=== PATIENT | female | born 1960 | race Caucasian/White ===

== ENCOUNTER → 2018-06-10 | Outpatient (CLI) | payer BC ==
--- NOTE | 2018-06-10 11:52 | 2DMMODE ---
[place] [address] 2 D/M-MODE ECHOCARDIOGRAM Name: DEACON WONG Room: [facility]#: [id number] Admission: 06/10/18 Attend Phys: Alice Neely Discharge: Date of : 64 Date of Service: 06/10/18 1151 Report #: [id number] THIS REPORT FOR: //name// APPROVED REPORT Study performed: 06/10/2018 09:01:25 EXAM: Comprehensive 2D, Doppler, and color-flow Echocardiogram Patient Location: Out-Patient Status: routine BSA: 2.57 HR: 94 bpm BP: 148/82 mmHg Other Information Study Quality: Fair Indications Dyspnea 2D Dimensions LVEF(%): 61.49 (>50%) IVSd: 9.53 (7-11mm) LVOT Diam: 20.68 (18-24mm) LVDd: 47.90 mm PWd: 9.24 (7-11mm) Ascending Ao: 27.30 (22-36mm) LVDs: 32.08 (25-40mm) Aortic Root: 29.00 mm Rahman's LVEF: 61.49 % Volumes Left Atrial Volume (Systole) LA ESV Index: 12.30 mL/m2 Aortic Valve AoV Peak Oz.: 1.57 m/s AO Peak Gr.: 9.87 mmHg LVOT Max P.07 mmHg AO Mean Gr.: 6.29 mmHg LVOT Mean P.59 mmHg LVOT Max V: 1.13 m/s AO V2 VTI: 28.01 cm LVOT Mean V: 0.74 m/s HILDA (VTI): 2.66 cm2 LVOT V1 VTI: 22.15 cm Mitral Valve E/A Ratio: 0.79 MV Decel. Time: 184.40 [place] [address] 2 D/M-MODE ECHOCARDIOGRAM Name: DEACON WONG Room: [facility]#: [id number] Admission: 06/10/18 Attend Phys: Alice Neely Discharge: Date of : 64 Date of Service: 06/10/18 1151 Report #: [id number] MV E Max Oz.: 0.60 m/s MV PHT: 53.48 ms MVA (PHT): 4.11 cm2 TDI E/Lateral E': 5.45 E/Medial E': 6.67 Medial E' Oz.: 0.09 m/s Lateral E' Oz.: 0.11 m/s Pulmonary Valve PV Peak Oz.: 1.33 m/s PV Peak Gr.: 7.03 mmHg Left Ventricle The left ventricle is normal size. There is normal LV segmental wall motion. There is normal left ventricular wall thickness. Left ventricular systolic function is normal. LVEF is 65-70%. Grade I - abnormal relaxation pattern. Right Ventricle The right ventricle is normal size. The right ventricular systolic function is normal. Atria The left atrium size is normal. The right atrium size is normal. Aortic Valve The aortic valve is normal in structure. No aortic regurgitation is present. There is no aortic valvular stenosis. Mitral Valve The mitral valve is normal in structure. There is no mitral valve regurgitation noted. No evidence of mitral valve stenosis. Tricuspid Valve The tricuspid valve is normal in structure. There is no tricuspid valve regurgitation noted. Pulmonic Valve The pulmonary valve is normal in structure. There is no pulmonic valvular regurgitation. Great Vessels The aortic root is normal in size. IVC is normal in size and collapses with >50% [place] [address] 2 D/M-MODE ECHOCARDIOGRAM Name: DEACON WONG Room: [facility]#: [id number] Admission: 06/10/18 Attend Phys: Alice Neely Discharge: Date of : 64 Date of Service: 06/10/18 1151 Report #: [id number] Pericardium There is no pericardial effusion. <Conclusion> The left ventricle is normal size. There is normal left ventricular wall thickness. Left ventricular systolic function is normal. LVEF is 65-70%. Grade I - abnormal relaxation pattern. IVC is normal in size and collapses with >50% inspiration <ELECTRONICALLY SIGNED> By: Piero Singh MD, FACC 06/10/18 1151 1151 1151 Piero Singh MD, FACC /INF
== END ==
LOC: M.CRD 08:39
DX: R06.00 Dyspnea, unspecified (principal)